=== PATIENT | female | born 1945 | race Caucasian/White ===

== ENCOUNTER 2018-11-23 17:40 | Observation (INO) ==
--- NOTE | 2018-11-23 18:02 | ED ---
HPI General Chief Complaint: Arrhythmia / Palpitations Stated Complaint: Afib/Sob/Jaw Pain/Indigestion Time Seen by Provider: 11/23/18 17:56 Source: patient and family Limitations: no limitations History of Present Illness HPI narrative: Patient is a 73-year-old female, past medical history significant for previous lung cancer in remission for the last 10 years, previous DVT several years ago formally on Xarelto though no longer as she had a GI bleed, previous paroxysmal A. fib not followed by a mental health aide recently and she does not know the name of the mental health aide she previously saw, who presents with complaint of chest pain and atrial fibrillation. She states that last night while doing nothing in particular she started to have substernal chest pain and jaw pain with dyspnea and thought she was in atrial fibrillation. This went away several hours later after taking Tums and Zantac. At approximately 1 PM today she had the symptoms again which lasted until 5 PM , just prior to arrival. She is not having pain nor palpitations at this time. No dyspnea at this time. No leg swelling and no immobilization. No fever, cough. MD complaint: Reports chest pain STEMI Alert: No Onset (ago): hour(s) Duration: constant Onset: during rest Pain location: Reports substernal Severity: moderate Quality: Reports other Pain radiation: Reports none Relieving factors: nothing Exacerbating factors: nothing Associated symptoms: Reports dyspnea Treatments prior to arrival chest pain: Reports none Related Data On Oral Contraceptives: No Home Medications Medication Instructions Recorded Confirmed alprazolam [Xanax] 0.5 mg PO BID 11/23/18 11/23/18 calcium carbonate-vitamin D3 1 tab PO DAILY 11/23/18 11/23/18 [Calcium 600 + D(3)] celecoxib [Celebrex] 200 mg PO DAILY 11/23/18 11/23/18 duloxetine 60 mg PO DAILY 11/23/18 11/23/18 ferrous sulfate 27 mg PO DAILY 11/23/18 11/23/18 lisinopril 10 mg PO DAILY 11/23/18 11/23/18 magnesium oxide 250 mg PO DAILY 11/23/18 11/23/18 montelukast 10 mg PO QPM 11/23/18 11/23/18 ranitidine HCl [Zantac] 300 mg PO DAILY 11/23/18 11/23/18 Allergies Allergy/AdvReac Type Severity Reaction Status Date / Time penicillin G Allergy Severe Anaphylaxis Verified 11/23/18 18:03 Review of Systems ROS: all other systems reviewed are negative [facility] Medical History Medical History Afib (Acute) Anemia (Acute) Bronchitis (Acute) COPD (chronic obstructive pulmonary disease) (Acute) GERD (gastroesophageal reflux disease) (Acute) HTN (hypertension) (Acute) Metastatic cancer to lung (Acute) Surgical History Surgical History History of total knee replacement (TKR) (Acute) Social History Social History Substance History: No History of Abuse Smoking Status: Former smoker How Often Do You Have a Drink Containing Alcohol: Monthly or less Recent Travel in [facility] within the Last 8 Weeks: No Recent Out of Country Travel within the Last 8 Weeks: No Exam Narrative Exam Narrative: GENERAL: Elderly female in no acute respiratory distress SKIN: Focused skin assessment warm/dry. HEAD: Atraumatic. Normocephalic. EYES: Pupils equal and round. No scleral icterus. No injection or drainage. ENT: No nasal bleeding or discharge. Mucous membranes pink and moist. NECK: Trachea midline. No JVD. CARDIOVASCULAR: Heart rate approximately 100 and regular. No murmur appreciated. Intact and equal peripheral pulses. RESPIRATORY: No accessory muscle use. Clear to auscultation. Breath sounds equal bilaterally. GASTROINTESTINAL: Abdomen soft, non-tender, nondistended. Hepatic and splenic margins not palpable. MUSCULOSKELETAL: No obvious deformities. No clubbing. No cyanosis. No edema. NEUROLOGICAL: Awake and alert. No obvious cranial nerve deficits. Motor grossly within normal limits. Normal sensation. Normal speech. PSYCHIATRIC: Appropriate mood and affect; insight and judgment normal. Course Initial Documented Vital Signs Temperature 98.8 F 11/23/18 18:04 Pulse Rate 103 H 11/23/18 18:04 Respiratory Rate 16 11/23/18 18:04 Blood Pressure 185/85 H 11/23/18 18:04 Pulse Oximetry 97 11/23/18 18:04 Last Documented Vital Signs Temperature 98.8 F 11/23/18 18:04 Pulse Rate 70 11/23/18 20:37 Respiratory Rate 18 11/23/18 20:37 Blood Pressure 148/66 H 11/23/18 20:37 Pulse Oximetry 96 11/23/18 20:37 Medical Decision Making MDM Narrative Medical decision making narrative: Patient is a 73-year-old female who presents with complaint of chest pain mitten since last night with feeling of A. fib which she believes converted prior to arrival. On arrival here she was in sinus tachycardia and has been hemodynamically stable. She has not had any chest pain while here. Initial troponin was unremarkable. Aspirin was ordered but not given as she then reported she had taken 325 mg at home prior to arrival. D-dimer was slightly elevated and CT of the chest was obtained. This showed nodules which the patient states were not present previously and she understands that this will likely need to be worked up outpatient. She is followed by Dr. Godfrey and would like to follow-up with him. She has been admitted to the chest pain center under Dr. Whitaker for serial EKGs and troponins. Medical Screen Exam Complete: Yes Emergency Medical Condition: Yes Differential Diagnosis Differential Diagnosis: Differential diagnosis includes but is not limited to atrial fibrillation, other dysrhythmia, acute coronary syndrome, anemia, pulmonary embolism. Medical Records Medical records reviewed: Yes I reviewed the patient's medical records. Lab Data Lab results reviewed: Yes I reviewed the patient's lab results. Result diagrams: 11/23/18 18:30 11/23/18 18:30 Lab Results 11/23/18 11/23/18 11/23/18 Range/Units 18:30 18:30 18:30 CBC w Diff Slide review pending WBC 10.5 (4.0-11.0) th/mm3 RBC 5.10 (4.00-5.30) mil/mm3 Hgb 15.3 (11.6-15.3) gm/dL Hct 45.6 (35.0-46.0) % MCV 89.5 (80.0-100.0) fL MCH 29.9 (27.0-34.0) pg MCHC 33.5 (32.0-36.0) % RDW 13.7 (11.6-17.2) % Plt Count 389 (150-450) th/mm3 MPV 8.4 (7.0-11.0) fL Neut % (Auto) 71.5 H (16.0-70.0) % Lymph % (Auto) 17.0 (9.0-44.0) % [place] % (Auto) 8.1 H (0.0-8.0) % Eos % (Auto) 2.5 (0.0-4.0) % Baso % (Auto) 0.9 (0.0-2.0) % Neut # (Auto) 7.5 (1.8-7.7) th/mm3 Lymph # (Auto) 1.8 (1.0-4.8) th/mm3 [place] # (Auto) 0.8 (0.0-0.9) th/mm3 Eos # (Auto) 0.3 (0.0-0.4) th/mm3 Baso # (Auto) 0.1 (0.0-0.2) th/mm3 WBC Differential . Diff Scan Auto diff confirmed Differential Comment . Platelet Estimate Normal (Normal) Platelet Morphology Normal (Normal) D-Dimer Quant (PE/DVT) 0.85 H (0.00-0.50) mg/L FEU Sodium 143 (136-145) meq/L Potassium 3.4 L (3.5-5.1) meq/L Chloride 108 H (98-107) meq/L Carbon Dioxide 28.3 (21.0-32.0) meq/L Anion Gap 7 (5-15) meq/L BUN 20 H (7-18) mg/dL Creatinine 1.10 H (0.50-1.00) mg/dL Estimated GFR 49 L (>89) mL/min Random Glucose 111 H (74-106) mg/dL Calcium 10.8 H (8.5-10.1) mg/dL Magnesium 2.1 (1.5-2.5) mg/dL Total Bilirubin 0.3 (0.2-1.0) mg/dL AST 13 L (15-37) U/L ALT 22 (10-53) U/L Alkaline Phosphatase 78 (45-117) U/L Troponin I Less than 0.02 L (0.02-0.05) ng/mL Total Protein 7.2 (6.4-8.2) g/dL Albumin 3.6 (3.4-5.0) g/dL Imaging Data Attestation: I personally reviewed and interpreted this imaging study as follows : Radiologist's impression: Chest X-Ray 11/23/18 17:57 CONCLUSION: Hyperinflation without infiltrate Chest CTA 11/23/18 19:07 CONCLUSION: 1. No evidence for pulmonary embolism. 2. Scattered bilateral pulmonary nodules, nonspecific but metastatic disease cannot be excluded. 3. [place] density in the left upper lobe likely chronic scarring. ECG Data EKG Prior to Arrival: No Attestation: I personally reviewed and interpreted this ECG as follows: (Sinus tachycardia at a rate of 103 bpm. There are no ST or T wave changes.) Discharge Plan Discharge Disposition Patient Disposition: ED Admit(ED Internal Use Only) Discharge Condition Condition: Stable Discharge Order Discharge Orders: ED Use Only Admit Order (Routine); Ordered 11/23/18 Ordered By: Lianet Carmen Discharge Details Diagnosis: Chest pain, rule out acute myocardial infarction Physicians Team ED Provider: Lianet Carmen Primary Care Provider: Primary Care ShruthiiCapri Rxs /Orders / Referrals /Forms Prescriptions: No Action celecoxib [Celebrex] 200 mg Capsule 200 mg PO DAILY RF: 0 ranitidine HCl [Zantac] 300 mg Tablet 300 mg PO DAILY RF: 0 alprazolam [Xanax] 0.5 mg Tablet 0.5 mg PO BID RF: 0 lisinopril 10 mg Tablet 10 mg PO DAILY RF: 0 montelukast 10 mg Tablet 10 mg PO QPM RF: 0 magnesium oxide 250 mg magnesium Tablet 250 mg PO DAILY RF: 0 duloxetine 60 mg Capsule,Delayed Release(Dr/Ec) 60 mg PO DAILY RF: 0 ferrous sulfate 27 mg iron Tablet 27 mg PO DAILY RF: 0 calcium carbonate-vitamin D3 [Calcium 600 + D(3)] 600 mg(1,500mg) -200 unit Tablet 1 tab PO DAILY RF: 0 Discharge Interventions Interventions: Vital Signs Last Done: 11/23/18 20:37 Status ED Status: Admitted Observation Patient
[2018-11-23 18:50] LABS: Baso # (Auto) 0.1 th/mm3 (0.0-0.2); Baso % (Auto) 0.9 % (0.0-2.0); Eos # (Auto) 0.3 th/mm3 (0.0-0.4); Eos % (Auto) 2.5 % (0.0-4.0); Hematocrit 45.6 % (35.0-46.0); Hemoglobin 15.3 gm/dL (11.6-15.3); Lymph # (Auto) 1.8 th/mm3 (1.0-4.8); Mean Corpuscular HGB Conc 33.5 % (32.0-36.0); Mean Corpuscular Hemoglobin 29.9 pg (27.0-34.0); Mean Corpuscular Volume 89.5 fL (80.0-100.0); Mean Platelet Volume 8.4 fL (7.0-11.0); Mono # (Auto) 0.8 th/mm3 (0.0-0.9); Mono % (Auto) 8.1 % (0.0-8.0); Neut # (Auto) 7.5 th/mm3 (1.8-7.7); Neut % (Auto) 71.5 % (16.0-70.0); Platelet Count 389 th/mm3 (150-450); Red Cell Distribution Width 13.7 % (11.6-17.2); White Blood Count 10.5 th/mm3 (4.0-11.0)
[2018-11-23 18:57] LABS: Chloride 108 meq/L (98-107); Potassium 3.4 meq/L (3.5-5.1); Sodium 143 meq/L (136-145)
[2018-11-23 19:00] LABS: Calcium 10.8 mg/dL (8.5-10.1)
[2018-11-23 19:01] LABS: Albumin 3.6 g/dL (3.4-5.0); Anion Gap 7 meq/L (5-15); Blood Urea Nitrogen 20 mg/dL (7-18); Carbon Dioxide 28.3 meq/L (21.0-32.0); Glucose,Random 111 mg/dL (74-106); Magnesium 2.1 mg/dL (1.5-2.5)
[2018-11-23 19:04] LABS: Alanine Aminotransferase 22 U/L (10-53); Aspartate Aminotransferase 13 U/L (15-37); Glomerular Filtration Rate 49 mL/min (>89)
[2018-11-23 19:05] LABS: Total Protein 7.2 g/dL (6.4-8.2)
[2018-11-23 19:07] LABS: Alkaline Phosphatase 78 U/L (45-117)
[2018-11-23 19:11] LABS: Platelet Estimate Normal (Normal); Platelet Morphology Normal (Normal)
--- NOTE | 2018-11-23 19:37 | XR ---
EXAM DATE: 11/23/2018 7:32 PM EST AGE/SEX: 73 years / Female INDICATIONS: . Chest pain. CLINICAL DATA: This is the patient's initial encounter. Patient reports that signs and symptoms have been present for 1 day and indicates a pain score of 2/10. MEDICAL/SURGICAL HISTORY: None. None. COMPARISON: [facility], CHEST PA & LAT, 11/23/2011. . FINDINGS: PA and lateral views of the chest demonstrate the lungs to be hyperinflated without evidence of mass, infiltrate or effusion. The cardiomediastinal contours are unremarkable. Osseous structures are inta ct. Degenerative changes thoracic spine. CONCLUSION: Hyperinflation without infiltrate Electronically signed by: Terrence Portillo MD Board Certified Radiologist 11/23/2018 7:35 PM EST
--- NOTE | 2018-11-23 20:13 | CT ---
EXAM DATE: 11/23/2018 8:01 PM EST AGE/SEX: 73 years / Female INDICATIONS: Heart Palpitations CLINICAL DATA: This is the patient's initial encounter. Patient reports that signs and symptoms have been present for 1 day and indicates a pain score of 0/10. MEDICAL/SURGICAL HISTORY: Chronic obstructive pulmonary disease. Gastroesophageal reflux disease. Carcinoma, lung. Atrial Fibrillation , Hypertension . Knee replacement RADIATION DOSE: 14.16 CTDI (mGy) COMPARISON: [facility], CT PULMONARY ANGIOGRAM, 07/27/2013. . TECHNIQUE: Volumetric scanning was performed using a multi-row detector CT scanner during bolus infu eliezer of 74ML ml Omnipaque 350 (iohexol) nonionic water-soluble contrast as a single exam dose. The d yandy was post processed with a variety of visualization algorithms including full volume maximum inten sity projection and sliding thin slab reformation. Using automated exposure control and adjustment of the mA and/or kV according to patient size, radiation dose was kept as low as reasonably achievable to obtain optimal diagnostic quality images. DICOM format image data is available electronically for review and comparison. FINDINGS: Pulmonary Arteries: No filling defects are seen in the pulmonary arteries out to the subsegmental ve ssels. The left and right pulmonary arteries are normal in diameter. Lung: No infiltrates seen. Stable oblong density in the left upper lobe medially. There are groundgl ass nodules in the posterior left upper lobe adjacent to the major fissure measuring 13 mm. 3 other g roundglass nodules throughout the right upper lobe measuring 7 to 10 mm. 4 mm nodule within the left lower lobe laterally. 5 to 6 mm nodule within the right lower lobe posteriorly. 7 mm nodule within th e right middle lobe medially. A few other smaller nodules are noted. Effusion: None. Mediastinum: No evidence of mediastinal or hilar adenopathy. Other: The axilla is unremarkable. Thyroid nodules. Small gallstones. CONCLUSION: 1. No evidence for pulmonary embolism. 2. Scattered bilateral pulmonary nodules, nonspecific but metastatic disease cannot be excluded. 3. [place] density in the left upper lobe likely chronic scarring. Electronically signed by: Terrence Portillo MD Board Certified Radiologist 11/23/2018 8:12 PM EST
[2018-11-23] MEDS ORDERED: Acetaminophen 325 MG Tablet PO ONE (20:35)
[2018-11-24 00:27] LABS: Troponin I 0.04 ng/mL (0.02-0.05)
--- NOTE | 2018-11-24 08:13 | P.HPIM ---
History of Present Illness Service: Hospitalist Primary Care Physician: No Primary Care Physician Chief Complaint: Chest pain History of Present Illness: Ms. Schroeder is a 73 year old female with a history of lung cancer in remission for the last 10 years, DVT, GI bleed, Afib who presented to the ED on 11/23/2018 due to chest pain as well as irregular heart beat she felt when she felt her pulse. On 11/22/2018, she started experiencing abdominal pain which then moved to substernal area with radiation to her jaw. She was not doing anything exertional. She had some dyspnea as well. Her symptoms improved after antacids but returned again in the afternoon on 2018. She had some diaphoresis and dizziness when she arrived at the hospital yesterday 11/23/2018. She denies any cough, abdominal pain. No fever, chills. No changes in bowel or bladder habits. Troponins are 0.02, 0.04, 0.04. CT chest shows scattered bilateral pulmonary nodules. No pulmonary embolism. Past medical history: Hypertension, atrial fibrillation, anxiety, depression. Past surgical history: Back surgery, total hysterectomy, left total knee arthroplasty, foot surgery. Social history: Patient does not use tobacco, alcohol or illicit drugs. Family history: Mother had emphysema, father fell from a building and at age 58. Review of Systems Review of Systems: all other systems reviewed are negative [facility] Medical History Medical History Afib (Acute) Anemia (Acute) Bronchitis (Acute) COPD (chronic obstructive pulmonary disease) (Acute) GERD (gastroesophageal reflux disease) (Acute) HTN (hypertension) (Acute) Metastatic cancer to lung (Acute) Surgical History Surgical History History of total knee replacement (TKR) (Acute) Social History Social History Substance History: No History of Abuse Second Hand Smoke Exposure: No Smoking Status: Former smoker Tobacco Type: Cigarettes How Often Do You Have a Drink Containing Alcohol: 2 to 3 times a week Recent Travel in [facility] within the Last 8 Weeks: No Recent Out of Country Travel within the Last 8 Weeks: No Immunization History Tetanus Immunization: Unsure Hx Influenza Vaccine This Season: Yes Medications and Allergies Allergies Allergy/AdvReac Type Severity Reaction Status Date / Time penicillin G Allergy Severe Anaphylaxis Verified 11/23/18 18:03 Home Medications Medication Instructions Recorded Confirmed Type alprazolam [Xanax] 0.5 mg PO BID 11/23/18 11/23/18 History calcium carbonate-vitamin D3 1 tab PO DAILY 11/23/18 11/23/18 History [Calcium 600 + D(3)] celecoxib [Celebrex] 200 mg PO DAILY 11/23/18 11/23/18 History duloxetine 60 mg PO DAILY 11/23/18 11/23/18 History ferrous sulfate 27 mg PO DAILY 11/23/18 11/23/18 History lisinopril 10 mg PO DAILY 11/23/18 11/23/18 History magnesium oxide 250 mg PO DAILY 11/23/18 11/23/18 History montelukast 10 mg PO QPM 11/23/18 11/23/18 History ranitidine HCl [Zantac] 300 mg PO DAILY 11/23/18 11/23/18 History Active Medications: Active Medications Sodium Chloride (Ns Flush) 2 ml IV.FLUSH UNSCH PRN PRN Reason: FLUSH AFTER USING IV ACCESS Sodium Chloride (Ns Flush) 2 ml IV.FLUSH BID CLAUDETTE Sodium Chloride (Ns Flush) 2 ml IV.FLUSH PRN PRN PRN Reason: FLUSH AFTER USING IV ACCESS Physical Exam Vital signs: Vital Signs 11/23/18 18:04 11/23/18 18:08 11/23/18 19:00 Temperature 98.8 F Pulse Rate 103 H 91 H 81 Respiratory Rate 16 16 16 Blood Pressure 185/85 H 120/70 134/80 Pulse Oximetry 97 98 95 11/23/18 20:37 11/23/18 21:24 11/24/18 00:00 Temperature 97.2 F L Pulse Rate 70 69 Respiratory Rate 18 18 18 Blood Pressure 148/66 H 182/84 H Pulse Oximetry 96 93 L Intake & Output 11/23/18 11/24/18 11/24/18 18:59 06:59 18:59 Intake Total 90 / 90 Output Total 700 / 700 Balance -610 / -610 Weight 74 kg 75.3 kg Intake: Oral 90 / 90 Output: Urine 700 / 700 Other: Date of Last Bowel Movement 11/23/18 Weight On Admission 75.5 kg Narrative: GENERAL: This is a well-nourished, well-developed patient, in no apparent distress. SKIN: No rashes, ecchymoses or lesions. Warm and dry. HEAD: Atraumatic. Normocephalic. No temporal or scalp tenderness. EYES: Pupils equal round and reactive. No injection or drainage. ENT: Nose without bleeding, purulent drainage or septal hematoma. Airway patent. NECK: Trachea midline. No lymphadenopathy. Supple, nontender, no meningeal signs. CARDIOVASCULAR: Regular rate and rhythm without murmurs, gallops, or rubs. No JVD. RESPIRATORY: Clear to auscultation. Breath sounds equal bilaterally. No wheezes , rales, or rhonchi. GASTROINTESTINAL: Abdomen soft, non-tender, nondistended. No guarding. MUSCULOSKELETAL: Extremities without clubbing, cyanosis, or edema. NEUROLOGICAL: Awake and alert. Cranial nerves II through XII intact. No focal neurological deficits. Normal speech. Results Labs CBC & Chem 7: 11/23/18 18:30 11/23/18 18:30 Imaging Impressions Chest X-Ray 11/23/18 17:57 CONCLUSION: Hyperinflation without infiltrate Chest CTA 11/23/18 19:07 CONCLUSION: 1. No evidence for pulmonary embolism. 2. Scattered bilateral pulmonary nodules, nonspecific but metastatic disease cannot be excluded. 3. [place] density in the left upper lobe likely chronic scarring. Caprini VTE Risk Assessment Caprini VTE Risk Assessment: Moderate/High Risk (score >= 2) Caprini Risk Assessment Model: Point Value = 1 Point Value = 2 Point Value = 3 Point Value = 5 Age 41-60 Minor surgery BMI > 25 kg/m2 Swollen legs Varicose veins or History of unexplained or recurrent spontaneous Oral contraceptives or hormone replacement Sepsis (< 1 month) Serious lung disease, including pneumonia (< 1 month) Abnormal pulmonary function Acute myocardial infarction Congestive heart failure (< 1 month) History of inflammatory bowel disease Medical patient at bed rest Age 61-74 Arthroscopic surgery Major open surgery (> 45 min) Laparoscopic surgery (> 45 min) Malignancy Confined to bed (> 72 hours) Immobilizing plaster cast Central venous access Age >= 75 History of VTE Family history of VTE Factor V Leiden Prothrombin [id number] Lupus anticoagulant Anticardiolipin antibodies Elevated serum homocysteine Heparin-induced thrombocytopenia Other congenital or acquired thrombophilia Stroke (< 1 month) Elective arthroplasty Hip, pelvis, or leg fracture Acute spinal cord injury (< 1 month) Prophylaxis Regimen: Total Risk Factor Score Risk Level Prophylaxis Regimen 0-1 Low Early ambulation 2 Moderate Order ONE of the following: *Sequential Compression Device (SCD) *Heparin 5000 units SQ BID 3-4 Higher Order ONE of the following medications: *Heparin 5000 units SQ TID *Enoxaparin/Lovenox 40 mg SQ daily (WT < 150 kg, CrCl > 30 mL/min) *Enoxaparin/Lovenox 30 mg SQ daily (WT < 150 kg, CrCl > 10-29 mL/min) *Enoxaparin/Lovenox 30 mg SQ BID (WT < 150 kg, CrCl > 30 mL/min) AND/OR *Sequential Compression Device (SCD) 5 or more Highest Order ONE of the following medications: *Heparin 5000 units SQ TID (Preferred with Epidurals) *Enoxaparin/Lovenox 40 mg SQ daily (WT < 150 kg, CrCl > 30 mL/min) *Enoxaparin/Lovenox 30 mg SQ daily (WT < 150 kg, CrCl > 10-29 mL/min) *Enoxaparin/Lovenox 30 mg SQ BID (WT < 150 kg, CrCl > 30 mL/min) AND *Sequential Compression Device (SCD) Assessment and Plan Plan Ms. Schroeder is a pleasant 73-year-old female with a history of lung cancer, atrial fibrillation who presents to the emergency department due to abdominal pain that went to substernal area and radiated to jaw. She also had diaphoresis later on. CT pulmonary angiogram shows no PE but shows bilateral scattered nodules. Acute chest pain Troponins are 0.02, 0.04, 0.04. Currently no chest pain. Some of patient's symptoms are typical. She has a history of radiation treatments due to lung cancer. We will obtain a Lexiscan today. Bilateral pulmonary nodules Given history of lung cancer, this finding is concerning. Patient typically gets CT scan yearly and per patient there was no evidence of any nodules in the previous scans. Patient has seen Dr. Godfrey (oncologist) for anemia in 2012. Will consult hematology oncology for an evaluation. Patient will likely need PET scan in the outpatient setting. Hypertension Paroxysmal atrial fibrillation GERD We will start patient on nifedipine 60 mg daily. Also start patient on metoprolol tartrate 25 mg p.o. twice daily Patient's [id number] score is 3 (73-year-old, female, hypertension) Discussed with patient regarding need for anticoagulation. Patient has a history of GI bleed but at the time she was also on NSAIDs. I would recommend patient to be on apixaban 5 mg twice a day. No NSAIDs including aspirin. Patient does have a history of GERD and can be on PPI. We will start patient on Protonix 40 mg twice daily. After 2-3 weeks, she can start taking once a day. Mild ROSALINA Mild Hypokalemia K+ 3.4. -Creatinine 1.10. Previously it was 0.81 in 2014. -Avoid ERYN inhibitor for now. -Will provide 20meQ of KCL PO. Full code. Lovenox for DVT prophylaxis. If patient wants to start Apixaban, we can d/c Lovenox. H&P: Quality VTE Deep Vein Thrombosis/Pulmonary Embolism Present on Admission: Yes
[2018-11-24] MEDS ORDERED: Metoprolol Tartrate 25 MG Tablet PO SCH (09:00)
[2018-11-24 09:08] VITALS: RESP 20
[2018-11-24] MEDS ORDERED: Regadenoson Inj 0.4 MG/5 ML Syringe IV.PUSH ONE (09:49)
[2018-11-24] MEDS ORDERED: Enoxaparin Inj 40 MG/0.4 ML Syringe SQ SCH (12:00)
[2018-11-24 12:31] VITALS: BP 144/70; PULSE 53; TEMP 97.9; O2SAT 95
--- NOTE | 2018-11-24 22:42 | ECG ---
Date Performed: 11/24/2018 Time Performed: 00:52:42 PTAGE: 73 years EKG: SINUS BRADYCARDIA BORDERLINE ECG PREVIOUS TRACING : 11/23/2018 21.04 DOCTOR: Carlos Enrique Rai Interpretating Date/Time 11/24/2018 22:41:33
--- NOTE | 2018-11-24 22:51 | ECG ---
Date Performed: 11/23/2018 Time Performed: 21:04:32 PTAGE: 73 years EKG: SINUS BRADYCARDIA POSSIBLE INFERIOR MYOCARDIAL INFARCTION BORDERLINE ECG PREVIOUS TRACING : 11/23/2018 17.50 DOCTOR: Carlos Enrique Rai Interpretating Date/Time 11/24/2018 22:51:12
--- NOTE | 2018-11-25 06:32 | ECG ---
Date Performed: 11/23/2018 Time Performed: 17:50:13 PTAGE: 73 years EKG: SINUS TACHYCARDIA ABNORMAL RHYTHM ECG NO PREVIOUS TRACING DOCTOR: Carlos Enrique Rai Interpretating Date/Time 11/25/2018 06:31:22
== END 2018-11-24 12:42 | disposition home or self-care (01) ==
LOC: PHEDA 17:40 → PHED 17:40 → PH3 22:55
PROVIDERS: ADMIT Hospitalist; ATTEND Hospitalist
DX: R68.84 Jaw pain; N17.9 Acute kidney failure, unspecified; R91.8 Other nonspecific abnormal finding of lung field; Z79.899 Other long term (current) drug therapy; K21.9 Gastro-esophageal reflux disease without esophagitis; R61 Generalized hyperhidrosis; R07.9 Chest pain, unspecified; J44.9 Chronic obstructive pulmonary disease, unspecified; Z85.118 Personal history of other malignant neoplasm of bronchus and lung; K80.20 Calculus of gallbladder without cholecystitis without obstruction; Z92.3 Personal history of irradiation; I48.0 Paroxysmal atrial fibrillation; E87.6 Hypokalemia; Z86.718 Personal history of other venous thrombosis and embolism; Z87.891 Personal history of nicotine dependence; I10 Essential (primary) hypertension; E04.2 Nontoxic multinodular goiter
CPT/HCPCS: 71020; 71046; 71275; 80053; 82550; 83735; 84484; 85025; 85379; 93005; 99285; G0378; Q9967